=== PATIENT | female | born 1970 | race Hispanic/Latino ===

== ENCOUNTER 2017-01-27 16:22 | Emergency (ER) | payer OTHER ==
[~2017-01-27] VITALS: Ht 165.1 cm; Wt 63.6 kg
[~2017-01-27 16:22] MED LIST: HYDR-4003 PO; IBUP800T28 PO; NITR100 PO; PHEN-777 PO
[2017-01-27 16:27] VITALS: BP 127/94; PULSE 96; RESP 16; O2SAT 98
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
[2017-01-27 19:08] VITALS: BP 117/75; PULSE 61; RESP 18; O2SAT 100
== END 2017-01-27 19:09 | disposition home or self-care (01) ==
LOC: SED 16:22
DX: S00.33XA Contusion of nose, initial encounter (principal); Y04.0XXA Assault by unarmed brawl or fight, initial encounter; Y93.9 Activity, unspecified; Y99.9 Unspecified external cause status; F17.200 Nicotine dependence, unspecified, uncomplicated; Y92.149 Unspecified place in prison as the place of occurrence of the external cause